=== PATIENT | male | born 1960 | race Caucasian/White ===

== ENCOUNTER → 2017-11-23 | Day surgery (SDC) | payer BC ==
[2017-11-22 17:23] VITALS: BMI 24.8
[~2017-11-23] MED LIST: Diazepam 5 MG TAB ONE; Fentanyl 100 MCG/2 ML VIAL ONE; Iopamidol 370 76% 100 ML VIAL ONE; Lidocaine 1% (PF) 30 ML VIAL ONE; Midazolam HCl 2 mg/2 ml Vial ONE; Nitroglycerin 100MG/250ML BOT 250 ML ONE; traMADol HCl 50 MG TAB ONE
[2017-11-23 06:42] LABS: #Eosinphils 0.2 thou/uL (0.0-0.7); #Lymphocytes 1.5 thou/uL (1.20-3.40); #Monocytes 0.5 thou/uL (0.11-0.59); #Neutrophils 3.4 thou/uL (1.40-6.50); %Basophils 0.8 % (0.0-1.0); %Eosinophils 3.3 % (0.0-10.0); %Lymphocytes 26.4 % (21.0-51.0); %Monocytes 8.2 % (0.0-10.0); %Neutrophils 61.3 % (42.0-75.0); Hemoglobin 14.3 g/dL (14.0-18.0); Mean Corpuscular HGB CONC 33.6 g/dL (32.0-36.0); Mean Corpuscular Hemoglobin 30.7 pg (27.0-31.0); Mean Corpuscular Volume 91.4 fL (78.0-98.0); Mean Platelet Volume 7.4 fL (7.4-10.4); Platelet Count 204 thou/uL (130-400); RBC Distribution Width 12.7 % (11.5-14.5); Red Blood Cell (RBC) Count 4.67 mill/uL (4.70-6.10); White Blood Cell (WBC) Count 5.6 thou/uL (4.8-10.8)
[2017-11-23 06:50] LABS: INR-International Normal Ratio 1.1; PTT 27.1 SEC (22.9-36.1); Prothrombin Time 14.2 SEC (12.0-14.7)
[2017-11-23 06:55] LABS: Anion Gap 9 mmol/L (10-20); BUN (Urea Nitrogen) 19 mg/dL (8.4-25.7); Calc. Creatinine Clearance 133 mL/min (70-130); Calcium 8.8 mg/dL (7.8-10.44); Carbon Dioxide 27 mmol/L (22-29); Cardiac Risk 2.9 (Less than 4.5); Chloride 107 mmol/L (98-107); Cholesterol 159 mg/dl (< 200 Desired); Estimated GFR-MDRD Greater than 90; Glucose 109 mg/dL (70-105); HDL Cholesterol 55 mg/dL (>60 Neg Risk); LDL Cholesterol, Calculated 88 mg/dL; Potassium 3.9 mmol/L (3.5-5.1); Sodium 139 mmol/L (136-145); Triglycerides 81 mg/dL (Less than 150)
== END ==
LOC: CCL 05:55
PROVIDERS: ATTEND Internal Medicine Cardiovascular Disease
DX: R07.9 Chest pain, unspecified (principal); R94.39 Abnormal result of other cardiovascular function study; Z79.82 Long term (current) use of aspirin; Z79.899 Other long term (current) drug therapy
CPT/HCPCS: 36415; 80048; 80061; 85025; 85610; 85730; 93458; 99152; 99153; C1769; J1644; J2001; J2250; J3010

== ENCOUNTER 2022-06-17 12:59 | Observation (INO) | payer OTHER ==
[2022-06-17] MEDS ORDERED: Lidocaine 1% PF 5 ML VIAL ONE (13:59)
[2022-06-17 15:10] LABS: CKMB 1.1 ng/mL (0-6.6); Troponin I 0.056 ng/mL (< 0.028)
[2022-06-17 15:27] VITALS: BMI 26.2
[2022-06-17] MEDS ORDERED: Ondansetron ODT 4 MG TAB SL PRN (15:45)
[2022-06-17] MEDS ORDERED: Ondansetron PF 4 MG/2 ML Vial IVP PRN (15:45)
[2022-06-17] MEDS ORDERED: Acetaminophen 325 MG TAB PO PRN (15:45)
[2022-06-17] MEDS: Sodium Chloride 0.9% 1,000 ML IV SCH ×2 (15:57→23:16)
[2022-06-17] MEDS: Apixaban 5 MG TAB PO SCH (20:44)
[2022-06-18 05:08] LABS: #Eosinphils 0.2 thou/uL (0.0-0.7); #Lymphocytes 2.1 thou/uL (1.20-3.40); #Monocytes 0.5 thou/uL (0.11-0.59); #Neutrophils 3.6 thou/uL (1.40-6.50); %Basophils 0.6 % (0.0-1.0); %Eosinophils 3.3 % (0.0-10.0); %Lymphocytes 32.7 % (21.0-51.0); %Neutrophils 55.3 % (42.0-75.0); Hemoglobin 13.8 g/dL (14.0-18.0); Mean Corpuscular HGB CONC 34.2 g/dL (32.0-36.0); Mean Corpuscular Hemoglobin 31.6 pg (27.0-31.0); Mean Corpuscular Volume 92.4 fl (78.0-98.0); Mean Platelet Volume 8.2 fL (7.4-10.4); Platelet Count 210 10x3/uL (130-400); RBC Distribution Width 12.2 % (11.5-14.5); Red Blood Cell (RBC) Count 4.37 mill/uL (4.70-6.10); White Blood Cell (WBC) Count 6.5 10x3/uL (4.8-10.8)
[2022-06-18 05:33] LABS: Anion Gap 11 mmol/L (10-20); BUN (Urea Nitrogen) 15 mg/dL (8.4-25.7); Calc. Creatinine Clearance 131 mL/min (70-130); Calcium 8.7 mg/dL (7.8-10.44); Carbon Dioxide 25 mmol/L (22-29); Chloride 107 mmol/L (98-107); Estimated GFR 100; Glucose 97 mg/dL (70-105); Potassium 4.1 mmol/L (3.5-5.1); Sodium 139 mmol/L (136-145)
[2022-06-18] MEDS ORDERED: Multivitamin W/ Minerals 1 TAB PO SCH (09:00)
[2022-06-18] MEDS: Apixaban 5 MG TAB PO SCH (09:43)
[2022-06-18 12:02] VITALS: BP 112/72; TEMP 99
== END 2022-06-18 12:40 | disposition home or self-care (01) ==
LOC: SURG A 13:51 → INTOOBSV 13:51 → 2NO 15:18
PROVIDERS: ADMIT Family Medicine; ATTEND Family Medicine
DX: I47.1 Supraventricular tachycardia (principal); I24.8 Other forms of acute ischemic heart disease; I48.0 Paroxysmal atrial fibrillation; I48.3 Typical atrial flutter; I25.10 Atherosclerotic heart disease of native coronary artery without angina pectoris; N40.0 Benign prostatic hyperplasia without lower urinary tract symptoms; K21.9 Gastro-esophageal reflux disease without esophagitis; Q24.5 Malformation of coronary vessels; G47.33 Obstructive sleep apnea (adult) (pediatric); Z79.01 Long term (current) use of anticoagulants; Z79.899 Other long term (current) drug therapy
CPT/HCPCS: 36415; 80048; 82550; 82553; 85025; G0378; G0379; J7050